=== PATIENT | female | born 1945 | race Caucasian/White ===

== ENCOUNTER → 2016-11-04 | Outpatient (CLI) | payer MEDICARE, BC ==
[~2016-11-04] MED LIST: AMIODARONE; AMLODIPINE BESY10 MG; AUGMENTIN875 MG DOB; BACLOFEN10 MG PO; BETAPACE80 MG PO; CALCIUM 600 + D1 TAB; CLARINEX-D1 TAB.SR . PO; COUMADIN5 MG PO; FUROSEMIDE40 MG PO; GLUCOPHAGE500 MG PO; HCTZ PO; IBUPROFEN PO; LEVOTHROID50 MCG; LISINOPRIL PO; MULTI VITAMIN1 EACH; PLENDIL PO; POTASSIUM CHLO10 MEQ; ULTRAM PO; ZOCOR PO
[2016-11-04 11:23] LABS: HEMATOCRIT 39.9 % (35.0-45.0); HEMOGLOBIN 13.4 gm/dL (12.0-16.0); MEAN CELL VOLUME 95.4 FL (83-96); MEAN CORPUSCULAR HEMOGLOBIN 32.1 PG (28-34); MEAN CORPUSCULAR HGB CONC 33.6 g/dL (30-36); MEAN PLATELET VOLUME 9.1 FL (6.5-11.5); RED BLOOD COUNT 4.19 X10e (3.90-5.30); RED CELL DISTRIBUTION WIDTH 14.3 % (11.0-15.5); WHITE BLOOD COUNT 5.8 X10e3 (4.0-10.5)
[2016-11-04 11:30] LABS: ALBUMIN SERUM 3.6 g/dL (3.5-5.0); CALCIUM SERUM 8.4 mg/dL (8.4-10.2); CREATININE SERUM 1.9 mg/dL (0.6-1.4); GLOM FILT RATE Estimated 26.3 mL/min (>60); PHOSPHOROUS 3.8 mg/dL (2.5-4.6); POTASSIUM 4.2 mmol/L (3.5-5.1)
[2016-11-04 14:59] LABS: CREATININE,RANDOM URINE 113 mg/dL; TOTAL PROTEIN,RANDOM URINE 27 mg/dl (<10)
== END | disposition home or self-care (01) ==
LOC: SLABONLY 10:48
PROVIDERS: Internal Medicine Nephrology
DX: I12.9 Hypertensive chronic kidney disease with stage 1 through stage 4 chronic kidney disease, or unspecified chronic kidney disease (principal); N18.3 Chronic kidney disease, stage 3 (moderate)
CPT/HCPCS: 36415; 80069; 82306; 82570; 84156; 85027

== ENCOUNTER → 2017-01-06 | Outpatient (CLI) | payer MEDICARE, BC ==
[2017-01-06 16:00] LABS: ALBUMIN SERUM 4.1 g/dL (3.5-5.0); CALCIUM SERUM 8.2 mg/dL (8.4-10.2); CREATININE SERUM 2.6 mg/dL (0.6-1.4); PHOSPHOROUS 4.1 mg/dL (2.5-4.6); POTASSIUM 3.8 mmol/L (3.5-5.1)
== END | disposition home or self-care (01) ==
LOC: SLAB 15:23
PROVIDERS: Internal Medicine Nephrology
DX: N18.3 Chronic kidney disease, stage 3 (moderate) (principal)
CPT/HCPCS: 36415; 80069

== ENCOUNTER 2017-01-14 15:17 | Emergency (ER) | payer MEDICARE, BC ==
[~2017-01-14] VITALS: Ht 154.9 cm; Wt 108.0 kg
--- NOTE | ~2017-01-14 | CR229 ---
[facility]. [facility] A Service of [facility] RADIOLOGY TEXT RESULTS PATIENT: DILLAN KINNEY LOCATION: SED : 47 UNIT #: [id number] AGE: [address]: LASHAUN RAMÍREZ SEX: F ORDER DR: [id number] [place] [id number] E MR#: [id number] Acc #: [id number] NAME: DILLAN KINNEY. : 1945 SEX: F STUDY DATE/TIME: 01/14/2017 16:38 UNIT: SED ROOM: STUDY DESCRIPTION: CR Shoulder Min 2 View Lt Attending Physician: Lashaun Ramírez Aprn Ordering Physician: Lashaun Ramírez Aprn Primary Care Physician: Ju Gerber M.D. MEDICAL IMAGING REPORT This report is preliminary unless electronic signature is present. EXAM Left shoulder HISTORY Left shoulder pain since yesterday after fall. COMPARISON STUDIES 03/26/2015. FINDINGS AP view with internal and external rotation of the shoulder girdle shows satisfactory relationship of the humeral head and glenoid fossa. The joint space is normal. There is no identifiable fracture or dislocation or bony destructive process about the shoulder girdle anatomy. The acromioclavicular joint is normal. There is no radiopaque foreign body in the region. IMPRESSION Normal shoulder. Dictated by... Kurt Booth M.D. THIS IS AN ELECTRONICALLY VERIFIED REPORT Kurt Booth M.D. at 01/15/2017 7:41 AM FEL/pcl TD: 01/15/2017 05:09 [facility]. [facility] A Service of [facility] RADIOLOGY TEXT RESULTS PATIENT: DILLAN KINNEY LOCATION: SED : 47 UNIT #: [id number] AGE: [address]: LASHAUN RAMÍREZ SEX: F ORDER DR: MATTHEW #: [id number] MEDICAL IMAGING REPORT Page 1 of 1
--- NOTE | ~2017-01-14 | CR142 ---
[facility] A Service of [facility] RADIOLOGY TEXT RESULTS PATIENT: DILLAN KINNEY LOCATION: SED : 47 UNIT #: [id number] AGE: [address]: LASHAUN RAMÍREZ SEX: F ORDER DR: [id number] [place] [id number] E MR#: [id number] Acc #: [id number] NAME: DILLAN KINNEY : 1945 SEX: F STUDY DATE/TIME: 01/14/2017 16:40 UNIT: SED ROOM: STUDY DESCRIPTION: CR Hand Min 3 Views Rt Attending Physician: Lashaun Ramírez Aprn Ordering Physician: Lashaun Ramírez Aprn Primary Care Physician: Ju Gerber M.D. MEDICAL IMAGING REPORT This report is preliminary unless electronic signature is present. EXAM Right hand, 3 views. HISTORY Fell injuring left shoulder and right hand, yesterday. FINDINGS Three views of the right hand demonstrates no acute fracture or dislocation. Multifocal arthritic changes are predominately within the DIP joints. Mild osteopenia. Carpal alignment unremarkable. IMPRESSION 1. No definite acute fracture deformity. 2. 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 1. Dictated by... Tika Haynes M.D. THIS IS AN ELECTRONICALLY VERIFIED REPORT Tika Haynes M.D. at 01/16/2017 4:04 PM CHARLINE/sebas TD: 01/15/2017 06:00 JOB #: [id number] MEDICAL IMAGING REPORT Page 1 of 1
--- NOTE | ~2017-01-14 | CR150 ---
[facility]. [facility] A Service of [facility] RADIOLOGY TEXT RESULTS PATIENT: DILLAN KINNEY LOCATION: SED : 47 UNIT #: [id number] AGE: [address]: LASHAUN RAMÍREZ SEX: F ORDER DR: [id number] [place] [id number] E MR#: [id number] Acc #: [id number] NAME: DILLAN KINNEY. : 1945 SEX: F STUDY DATE/TIME: 01/14/2017 17:48 UNIT: SED ROOM: STUDY DESCRIPTION: CR Hip Min 2 Views Lt Attending Physician: Lashaun Ramírez Aprn Ordering Physician: Lashaun Ramírez Aprn Primary Care Physician: Ju Gerber M.D. MEDICAL IMAGING REPORT This report is preliminary unless electronic signature is present. EXAM Left hip, [address] abdomen and pelvis dated December 09, 2015. INDICATION 71-year-old female with left hip pain since falling last night onto the left side. FINDINGS Left hip is anatomically aligned. There are arterial calcifications in the left thigh. There is mild degenerative change at both sacroiliac joints. Mild enthesopathy at the right greater trochanter. Arterial calcifications in the bilateral pelvis. Degenerative changes of the lumbar spine. No evidence of acute fracture. There may be degenerative subchondral cystic change at the left acetabulum. There is a port seen within the left lower quadrant of the abdomen with associated tubing, thought part of a gastric lap-band device, incompletely imaged. No evidence of complication seen on this exam. IMPRESSION No evidence of acute fracture or dislocation of the left hip. Suspected mild degenerative change of the left acetabulum. Dictated by... Santino Bass M.D. THIS IS AN ELECTRONICALLY VERIFIED REPORT Santino Bass M.D. at 01/20/2017 9:24 AM BLM/gz [facility] A Service of [facility] RADIOLOGY TEXT RESULTS PATIENT: DILLAN KINNEY LOCATION: SED : 47 UNIT #: [id number] AGE: [address]: LASHAUN RAMÍREZ SEX: F ORDER DR: TD: 01/15/2017 07:41 JOB #: [id number] MEDICAL IMAGING REPORT Page 1 of 1
[~2017-01-14 15:17] MED LIST changes: -FUROSEMIDE40 MG PO
[2017-01-14] MEDS ORDERED: FUROSEMIDE40 MG PO (15:26)
== END 2017-01-14 19:56 | disposition home or self-care (01) ==
LOC: SED 15:17
DX: S40.012A Contusion of left shoulder, initial encounter (principal); S70.02XA Contusion of left hip, initial encounter; N18.9 Chronic kidney disease, unspecified; I12.9 Hypertensive chronic kidney disease with stage 1 through stage 4 chronic kidney disease, or unspecified chronic kidney disease; E11.22 Type 2 diabetes mellitus with diabetic chronic kidney disease; I48.91 Unspecified atrial fibrillation; Z79.01 Long term (current) use of anticoagulants; Z88.5 Allergy status to narcotic agent; W01.198A Fall on same level from slipping, tripping and stumbling with subsequent striking against other object, initial encounter; Y93.89 Activity, other specified
CPT/HCPCS: 73030; 73130; 73502; 99283